=== PATIENT | female | born 1985 | race Caucasian/White ===

== ENCOUNTER 2024-05-06 05:05 | Inpatient (IN) | payer MEDICAID ==
[2024-05-06] MEDS ORDERED: Oxytocin/0.9 % Sodium Chloride 30 UNIT/500 ML BAG IV SCH ×2 (05:15→10:00)
[2024-05-06] MEDS: Lactated Ringers 1,000 ML IV SCH (05:31)
[2024-05-06 06:13] LABS: BASOPHILS PERCENT AUTO 0.5 % (0.0-1.0); EOSINOPHILS ABSOLUTE AUTO 0.1 K/mm3 (0.0-0.4); EOSINOPHILS PERCENT AUTO 0.8 % (0.0-6.0); HEMATOCRIT 33.6 % (37.0-47.0); HEMOGLOBIN 11.5 gm/dl (12.0-16.0); IMMATURE GRAN ABSOLUTE AUTO 0.04 K/mm3 (0.00-0.05); IMMATURE GRAN PERCENT AUTO 0.5 % (0.0-0.4); LYMPHOCYTES ABSOLUTE AUTO 1.5 K/mm3 (1.0-4.8); LYMPHOCYTES PERCENT AUTO 19.1 % (24.0-44.0); MEAN CORPUSCULAR HEMOGLOBIN 30.8 pg (28.0-32.0); MEAN CORPUSCULAR HGB CONC 34.2 g/dl (32.0-36.0); MEAN CORPUSCULAR VOLUME 90.1 fl (83.0-99.0); MEAN PLATELET VOLUME 10.3 fl (9.4-12.3); MONOCYTES ABSOLUTE AUTO 0.7 K/mm3 (0.0-0.8); MONOCYTES PERCENT AUTO 8.7 % (0.0-8.0); NEUTROPHILS ABSOLUTE AUTO 5.6 K/mm3 (1.8-7.7); NEUTROPHILS PERCENT AUTO 70.4 % (41.0-71.0); PLATELET COUNT,PLT 195 K/mm3 (150-400); RED BLOOD CELL COUNT 3.73 M/mm3 (4.10-5.30); WHITE BLOOD CELL COUNT,WBC 7.95 K/mm3 (3.9-11.3)
[2024-05-06] MEDS: Citric Acid/Sodium Citrate Solution 30 ML Cup PO ONE (07:06)
[2024-05-06] MEDS: Metoclopramide 10 MG/2 ML SDV IVPUSH ONE (07:07)
[2024-05-06] MEDS ORDERED: Morphine PF 10 MG/10 ML SDV ONE (07:07)
[2024-05-06] MEDS ORDERED: ceFAZolin 2 GM Vial ONE (07:08)
[2024-05-06] MEDS ORDERED: diphenhydrAMINE 50 MG/ML SDV IVPUSH PRN (07:15)
[2024-05-06] MEDS ORDERED: Ondansetron 4 MG/2 ML SDV IVPUSH PRN (07:15)
[2024-05-06] MEDS ORDERED: fentaNYL 100 MCG/2 ML SDV IVPUSH PRN (07:15)
[2024-05-06] MEDS ORDERED: Meperidine 50 MG/ML Vial IVPUSH PRN (07:15)
[2024-05-06] MEDS ORDERED: Phenylephrine 1% 10 MG/ML SDV ONE (07:26)
[2024-05-06] MEDS ORDERED: Sodium Chloride 0.9% 250 ML ONE (07:26)
[2024-05-06] MEDS ORDERED: Bupivacaine 0.5% 30 ML SDV ONE (07:28)
[2024-05-06] MEDS: Bupivacaine 0.5% 30 ML SDV ONE (08:11)
[2024-05-06] MEDS ORDERED: Magnesium Hydroxide 400 MG/5 ML Susp 30 ML Cup PO PRN (09:46)
[2024-05-06] MEDS ORDERED: ePHEDrine 50 MG/ML SDV IVPUSH PRN (09:46)
[2024-05-06] MEDS ORDERED: Naloxone 0.4 MG/ML SDV IVPUSH PRN (09:46)
[2024-05-06] MEDS: Dextrose 5%-Lactated Ringers 1,000 ML IV SCH (10:07)
[2024-05-06] MEDS: Ketorolac 30 MG/ML SDV IVPUSH ONE (10:10)
[2024-05-06] MEDS: Simethicone 80 MG Tab.Chew PO SCH (13:32)
[2024-05-06] MEDS: diphenhydrAMINE 50 MG/ML SDV IVPUSH PRN (13:35)
[2024-05-06] MEDS: Ketorolac 30 MG/ML SDV IVPUSH SCH (16:03)
[2024-05-06] MEDS: NIFEdipine 30 MG Tab.ER PO SCH (18:21)
[2024-05-06] MEDS: Docusate Sodium 100 MG Cap PO SCH (21:55)
[2024-05-07 06:35] LABS: BASOPHILS PERCENT AUTO 0.5 % (0.0-1.0); EOSINOPHILS ABSOLUTE AUTO 0.1 K/mm3 (0.0-0.4); HEMOGLOBIN 10.7 gm/dl (12.0-16.0); IMMATURE GRAN ABSOLUTE AUTO 0.05 K/mm3 (0.00-0.05); IMMATURE GRAN PERCENT AUTO 0.6 % (0.0-0.4); LYMPHOCYTES ABSOLUTE AUTO 1.7 K/mm3 (1.0-4.8); LYMPHOCYTES PERCENT AUTO 18.8 % (24.0-44.0); MEAN CORPUSCULAR HEMOGLOBIN 31.1 pg (28.0-32.0); MEAN CORPUSCULAR HGB CONC 34.5 g/dl (32.0-36.0); MEAN CORPUSCULAR VOLUME 90.1 fl (83.0-99.0); MEAN PLATELET VOLUME 10.6 fl (9.4-12.3); MONOCYTES ABSOLUTE AUTO 0.8 K/mm3 (0.0-0.8); MONOCYTES PERCENT AUTO 9.5 % (0.0-8.0); NEUTROPHILS ABSOLUTE AUTO 6.1 K/mm3 (1.8-7.7); NEUTROPHILS PERCENT AUTO 69.6 % (41.0-71.0); PLATELET COUNT,PLT 179 K/mm3 (150-400); RED BLOOD CELL COUNT 3.44 M/mm3 (4.10-5.30); WHITE BLOOD CELL COUNT,WBC 8.76 K/mm3 (3.9-11.3)
[2024-05-07] MEDS: Prenatal Multivitamin with Calcium/Folic Acid/Iron Tab PO SCH (10:43)
[2024-05-07] MEDS: Acetaminophen/oxyCODONE 325-5 MG Tab PO PRN ×2 (11:10→21:58)
[2024-05-07] MEDS: Ibuprofen 600 MG Tab PO SCH ×2 (12:29→16:00)
[2024-05-07] MEDS: ceFAZolin 2 GM in Sodium Chloride 0.9% 50 ML IV ONE (16:27)
== END 2024-05-08 10:06 | disposition home or self-care (01) | DRG 787 ==
LOC: JD.OB 05:05
PROVIDERS: ADMIT Obstetrics & Gynecology; ATTEND Obstetrics & Gynecology
PROC: 10D00Z1 Extraction of Products of Conception, Low, Open Approach (ICD-10-PCS; principal; 2024-05-06 08:00)
DX: O34.211 Maternal care for low transverse scar from previous cesarean delivery (principal); O10.913 Unspecified pre-existing hypertension complicating pregnancy, third trimester; Z37.0 Single live birth; Z3A.35 35 weeks gestation of pregnancy; O99.02 Anemia complicating childbirth
CPT/HCPCS: 36415; 59025; 85025; 86592; 86850; 86900; 86901; 94762; A9270-GY; J0665; J0690; J1200; J1885; J2274; J2371; J2765; J7050; J7120; J7121; J7999